=== PATIENT | female | born 1950 | race Caucasian/White ===

== ENCOUNTER 2019-02-02 21:05 | Inpatient (IN) | payer BC, MEDICARE ==
[2019-02-02] MEDS ORDERED: IPRATROPIUM/ALBUTEROL 0.5-2.5 MG/3 ML AMPUL NEB ONE (21:34)
[2019-02-02] MEDS: ALBUTEROL SULFATE 0.083% NEB 2.5 MG/3 ML AMPUL NEB SCH (21:48)
[2019-02-02 21:51] LABS: ABSOLUTE MONOCYTES (AUTO) 0.4 10^3/uL (0.1-1.4); ABSOLUTE NEUT (AUTO) 12.9 10^3/uL (1.7-8.2); BASOPHILS % (AUTO) 0.2 % (0-2); EOSINOPHILS % (AUTO) 0.2 % (0-6); HEMATOCRIT 42.9 % (36.0-47.0); HEMOGLOBIN 14.5 g/dL (12.0-15.5); LYMPHOCYTES % (AUTO) 6.9 % (13-45); MEAN CORPUSCULAR HEMOGLOBIN 32.6 pg (27.0-33.4); MEAN CORPUSCULAR HGB CONC 33.8 g/dL (32.0-36.0); MEAN CORPUSCULAR VOLUME 97 fl (80-97); MONOCYTES % (AUTO) 2.7 % (3-13); PLATELET COUNT 283 10^3/uL (150-450); RED BLOOD COUNT 4.44 10^6/uL (3.72-5.28); TOTAL CELLS COUNTED % (AUTO) 100 %; WHITE BLOOD COUNT 14.3 10^3/uL (4.0-10.5)
[2019-02-02 22:08] LABS: ALANINE AMINOTRANSFERASE 22 U/L (9-52); ALBUMIN 4.1 g/dL (3.5-5.0); ALKALINE PHOSPHATASE 107 U/L (38-126); ANION GAP 8 (5-19); ASPARTATE AMINO TRANSFERASE 18 U/L (14-36); BILIRUBIN,DIRECT 0.3 mg/dL (0.0-0.4); BILIRUBIN,TOTAL 0.6 mg/dL (0.2-1.3); BLOOD UREA NITROGEN 22 mg/dL (7-20); CALCIUM 9.6 mg/dL (8.4-10.2); CARBON DIOXIDE 33 mmol/L (22-30); CHLORIDE 99 mmol/L (98-107); GLUCOSE 188 mg/dL (75-110); POTASSIUM 3.9 mmol/L (3.6-5.0); SODIUM 139.6 mmol/L (137-145); TOTAL PROTEIN 7.1 g/dL (6.3-8.2)
--- NOTE | 2019-02-02 22:18 | RADIOLOGY REPORT (SQ) ---
EXAM DESCRIPTION: XR CHEST 1 VIEW COMPLETED DATE/TME: 02/02/2019 21:34 CLINICAL HISTORY: 68 years, Female, DIFFICULTY BREATHING COMPARISON: None. NUMBER OF VIEWS: 1 TECHNIQUE: Portable chest LIMITATIONS: None. FINDINGS: Heart size normal. Mild atheromatous change thoracic aorta. Lungs are clear. No pneumothorax IMPRESSION: No acute cardiopulmonary process copyright 2010 [employer]- All Rights Reserved
[2019-02-02] MEDS ORDERED: ALBUTEROL SULFATE 0.083% NEB 2.5 MG/3 ML AMPUL NEB ONE (22:32)
--- NOTE | 2019-02-02 22:39 | ER Document Report ---
ED General - General Chief Complaint: Shortness Of Breath Stated Complaint: DIFFICULTY BREATHING Time Seen by Provider: 02/02/19 22:32 Notes: Patient is a 68-year-old female who presents with complaints of difficulty breathing is been worsening over the course of a week. She is a smoker. She says that since she is been sick and having difficulty breathing she did stop smoking this week. She did go to her medical clinic today and she was hypoxic and therefore she was sent here. She received a injection of steroids at the clinic in several breathing treatments. She then got here and start her breathing treatments as well. She denies any fevers. No vomiting. No chest pain. No other complaints at this time. TRAVEL OUTSIDE OF THE [place] IN LAST 30 DAYS: No - Related Data Allergies/Adverse Reactions: No Known Allergies Allergy (Unverified 02/02/19 21:49) Past Medical History - Social History Smoking Status: Former Smoker Frequency of alcohol use: None Drug Abuse: None Family History: Reviewed & Not Pertinent Patient has suicidal ideation: No Patient has homicidal ideation: No - Past Medical History Cardiac Medical History: Reports: Hx Hypertension Renal/ Medical History: Denies: Hx Peritoneal Dialysis Review of Systems - Review of Systems Notes: My Normal Review Basic REVIEW OF SYSTEMS: CONSTITUTIONAL : Denies fever, chills, or sweats. Denies recent illness. EENT: Denies eye, ear, throat, or mouth pain or symptoms. Denies nasal or sinus congestion. CARDIOVASCULAR: Denies chest pain. RESPIRATORY: Wheezing and difficulty breathing GASTROINTESTINAL: Denies abdominal pain. Denies nausea, vomiting SKIN: Denies rash or skin lesions. NEUROLOGICAL: Denies altered mental status or loss of consciousness. Denies h eadache. Denies weakness or paralysis or loss of use of either side. Denies problems with gait or speech. Denies sensory or motor loss. ALL OTHER SYSTEMS REVIEWED AND NEGATIVE. Physical Exam - Vital signs Vitals: Temp Pulse Resp BP Pulse Ox 98.1 F 103 H 20 143/63 H 87 L 02/02/19 21:12 02/02/19 21:12 02/02/19 21:12 02/02/19 21:12 02/02/19 21:12 - Notes Notes: General Appearance: Well nourished, alert, cooperative, mild acute distress, no obvious discomfort. Vitals: reviewed, See vital signs table. Eyes: PERRL, EOMI, Conjuctiva clear Mouth: No decreasd moisture Throat: No tonsillar inflammation, No airway obstruction, No lymphadenopathy Neck: Supple, no neck tenderness, No thyromegaly Lungs: Diffuse wheezing, No rales, No rhonci, No accessory muscle use, Fair air exchange bilaterally. Heart: Normal rate, Regular rythm, No murmur, no rub Abdomen: Normal BS, soft, No rigidity, No abdominal tenderness, No guarding, no rebound, no abdominal masses, no organomegaly Extremities: good pulses in all extremities, no swelling or tenderness in the extremities, no edema. Skin: warm, dry, appropriate color, no rash Neuro: speech clear, oriented x 3, normal affect, responds appropriately to questions. Course - Re-evaluation Re-evalutation: 02/02/19 23:52 On reevaluation patient's wheezing is resolved. She is still on oxygen. I will slowly downtrend her supplemental oxygen to see if we can get her off oxygen and potentially get her discharged home. Currently she is 93% on 2 L. I have just turned her down the 1 L of oxygen. We will leave her there and then reassess her shortly. 02/03/19 00:54 Unfortunately patient's oxygen saturation dropped to 88 and 89% when I titrated her down to 1 L of oxygen. This is with her at rest. Therefore did not feel that she can go home as I am unable to even titrate her off oxygen to even test her to ambulate her as her oxygen saturation only drops. Patient is agreeable to staying. I will speak with the hospitalist about potential admission. 02/03/19 01:22 I did speak with Dr. Beebe, hospitalist, evaluate the patient for admission. - Vital Signs Vital signs: Temp Pulse Resp BP Pulse Ox 98.1 F 103 H 19 110/58 L 92 02/02/19 21:12 02/02/19 21:12 02/03/19 00:01 02/03/19 00:01 02/03/19 00:01 - Laboratory Result Diagrams: 02/02/19 21:35 02/02/19 21:35 Laboratory results interpreted by me: 02/02/19 02/02/19 02/02/19 21:35 21:35 23:00 WBC 14.3 H Seg Neutrophils % 90.0 H Lymphocytes % 6.9 L Monocytes % 2.7 L Absolute Neutrophils 12.9 H Carbon Dioxide 33 H BUN 22 H Glucose 188 H Urine Ascorbic Acid 20 H - EKG Interpretation by Me Additional EKG results interpreted by me: 02/02/19 22:33 EKG is reviewed and interpreted by me. EKG shows sinus tachycardia with rate of [address] segment elevation or depression. No ischemic T wave inversions. KS interval, QRS duration, QT intervals are within normal range. No old EKG available for comparison. Discharge - Discharge Clinical Impression: Bronchitis, Hypoxemia Condition: Stable Disposition: ADMITTED OBSERVATION Admitting Provider: Abiel (Hospitalist) Unit Admitted: Telemetry
[2019-02-02] MEDS: MAGNESIUM SULFATE/D5W 1 GM/100 ML RTUPB IV SCH ×2 (23:04→23:26)
--- NOTE | 2019-02-02 23:13 | EKG REPORT ---
SEVERITY:- ABNORMAL ECG - SINUS TACHYCARDIA LEFT ATRIAL ABNORMALITY BORDERLINE LEFT AXIS DEVIATION NONSPECIFIC T ABNORMALITIES, LATERAL LEADS : Confirmed by: Pat Andrews 02-Feb-2019 23:11:17
[2019-02-03 00:07] LABS: APPEARANCE,URINE TURBID; BILIRUBIN,URINE NEGATIVE (NEGATIVE); COLOR,URINE AMBER; GLUCOSE, URINE NEGATIVE (NEGATIVE); KETONES,URINE NEGATIVE (NEGATIVE); LEUKOCYTE ESTERASE,URINE NEGATIVE (NEGATIVE); NITRITE,URINE NEGATIVE (NEGATIVE); PROTEIN,URINE NEGATIVE (NEGATIVE); URINE SPECIFIC GRAVITY 1.018; UROBILINOGEN,URINE NEGATIVE mg/dL (<2.0)
[2019-02-03] MEDS: ALBUTEROL SULFATE 0.083% NEB 2.5 MG/3 ML AMPUL NEB SCH (00:50)
[2019-02-03] MEDS ORDERED: ALBUTEROL SULFATE 0.083% NEB 2.5 MG/3 ML AMPUL NEB ONE (00:54)
[2019-02-03] MEDS ORDERED: MAGNESIUM HYDROXIDE SUSP 30 ML UDCUP PO PRN (02:38)
[2019-02-03] MEDS ORDERED: ZOLPIDEM TARTRATE 5 MG TABLET PO PRN (02:38)
[2019-02-03] MEDS ORDERED: ONDANSETRON HCL INJ/PF 4 MG/2 ML SDV IV PRN (02:38)
[2019-02-03] MEDS ORDERED: MAG HYDROX/AL HYDROX/SIMETH SUSP 30 ML UDCUP PO PRN (02:38)
[2019-02-03] MEDS ORDERED: LEVALBUTEROL HCL NEB 1.25 MG/3 ML AMPUL NEB PRN (02:38)
[2019-02-03] MEDS ORDERED: NALBUPHINE HCL INJ 10 MG/1 ML AMPULE IV PRN (02:41)
[2019-02-03] MEDS ORDERED: NICOTINE 21 MG/24 HR PATCH.TD24 TD PRN (02:41)
[2019-02-03] MEDS ORDERED: ACETAMINOPHEN 325 MG TABLET PO PRN (02:41)
[2019-02-03 04:06] LABS: FREE T3 3.71 pg/mL (2.77-5.27)
[2019-02-03 04:07] LABS: FREE T4 (FREE THYROXINE) 1.17 ng/dL (0.78-2.19)
[2019-02-03] MEDS: HEPARIN SOD (PORCINE) 5,000 UNIT/ML 1 ML SYRINGE SUBCUT SCH ×3 (05:13→21:50)
[2019-02-03] MEDS ORDERED: METHYLPREDNISOLONE INJ 40 MG/1 ML SDV IV SCH (06:00)
--- NOTE | 2019-02-03 06:52 | PDOC H&P ---
History of Present Illness Admission Date/PCP: 02/03/19 01:32 Patient complains of: Dyspnea History of Present Illness: CYN HEAD is a 68 year old female who presented to the emergency room with a 2-week history of dyspnea. She admits that she has been having dyspnea for 2 weeks and did finally stop smoking approximately 1 week ago trying to help with her dyspnea and it seemed that she continued to worsen and become so severe that she felt the need for medical attention and went to a clinic where she was found to be significantly hypoxic and subsequently sent to the emergency room. She denies prior similar episodes and has not identified any aggravating or ameliorating factors for her dyspnea. In the ER she was found to be significantly hypoxic and was started on an aggressive pulmonary toilet intravenous steroids and nebulizer therapy. She improved slightly but continued to require oxygen via nasal cannula in order to maintain her O2 sat. Patient was subsequently admitted to the hospital for further evaluation and treatment. Past Medical History Cardiac Medical History: Reports: Hypertension Denies: Coronary Artery Disease Pulmonary Medical History: Reports: Bronchitis Denies: Asthma, Chronic Obstructive Pulmonary Disease (COPD), Pneumonia, Respiratory Failure EENT Medical History: Denies: Cataracts Neurological Medical History: Denies: Hemorrhagic CVA, Ischemic CVA, Seizures Endocrine Medical History: Denies: Diabetes Mellitus Type 1, Diabetes Mellitus Type 2, Hyperthyroidism, Hypothyroidism Renal/ Medical History: Denies: Chronic Kidney Disease, Nephrolithiasis Malignancy Medical History: Reports: None GI Medical History: Denies: Cirrhosis, Hepatitis Musculoskeltal Medical History: Denies: Arthritis, Fibromyalgia Skin Medical History: Denies: Eczema, Psoriasis Psychiatric Medical History: Reports: Tobacco Dependency Denies: Alcohol Dependency, Substance Abuse Traumatic Medical History: Reports: None Hematology: Denies: Anemia, Bleeding Tendencies Infectious Medical History: Reports: None Past Surgical History Past Surgical History: Reports: None Social History Information Source: Patient Lives with: Spouse/Significant other Smoking Status: Current Every Day Smoker Frequency of Alcohol Use: Rare Hx Recreational Drug Use: No Drugs: None Hx Prescription Drug Abuse: No - Advance Directive Resuscitation Status: Full Code Surrogate healthcare decision maker:: Spouse Family History Family History: CAD, COPD, DM, Hypertension, Malignancy Parental Family History Reviewed: Yes Children Family History Reviewed: No Sibling(s) Family History Reviewed.: Yes Medication/Allergy Allergies/Adverse Reactions: No Known Allergies Allergy (Unverified 02/02/19 21:49) Review of Systems Constitutional: ABSENT: chills, fever(s) Eyes: ABSENT: visual disturbances, other - Eye pain Ears: ABSENT: hearing changes, other - Ear pain Nose, Mouth, and Throat: ABSENT: mouth pain, sore throat Cardiovascular: PRESENT: dyspnea on exertion. ABSENT: chest pain, palpitations Respiratory: PRESENT: as per HPI, cough, dyspnea. ABSENT: hemoptysis, sputum Gastrointestinal: ABSENT: abdominal pain, constipation, diarrhea, nausea, vomiting Genitourinary: ABSENT: dysuria, hematuria Musculoskeletal: ABSENT: back pain, joint swelling, muscle weakness Integumentary: ABSENT: pruritus, rash Neurological: ABSENT: confusion, convulsions, focal weakness, memory loss, syncope Psychiatric: ABSENT: anxiety, depression Endocrine: ABSENT: cold intolerance, heat intolerance Hematologic/Lymphatic: ABSENT: easy bleeding, easy bruising Physical Exam Vital Signs: Temp Pulse Resp BP Pulse Ox 98.1 F 103 H 16 133/60 H 92 02/02/19 21:12 02/02/19 21:12 02/03/19 01:01 02/03/19 01:01 02/03/19 01:23 Intake & Output 02/01/19 02/02/19 02/03/19 23:59 23:59 23:59 Intake Total 37 100 Balance 37 100 Weight 87.3 kg General appearance: PRESENT: no acute distress, cooperative, other - on O2/NC Head exam: PRESENT: atraumatic, normocephalic Eye exam: ABSENT: conjunctival injection, scleral icterus Ear exam: PRESENT: normal external ear exam. ABSENT: drainage Mouth exam: PRESENT: dry mucosa, neck supple Neck exam: ABSENT: thyromegaly, tracheal deviation Respiratory exam: PRESENT: decreased breath sounds - mild throughout chest, prolonged expiratory phas - moderate, symmetrical, wheezes - expiratory. ABSENT: accessory muscle use, retraction, tachypnea Cardiovascular exam: PRESENT: RRR. ABSENT: clicks, gallop, rubs Pulses: PRESENT: normal radial pulses, normal dorsalis pedis pul Vascular exam: PRESENT: normal capillary refill. ABSENT: pallor GI/Abdominal exam: PRESENT: normal bowel sounds, soft Rectal exam: PRESENT: deferred Extremities exam: ABSENT: joint swelling, pedal edema Musculoskeletal exam: PRESENT: full ROM, normal inspection Neurological exam: PRESENT: alert, oriented to person, oriented to place, oriented to time, oriented to situation, CN II-XII grossly intact. ABSENT: motor sensory deficit Psychiatric exam: PRESENT: appropriate affect, normal mood Skin exam: PRESENT: dry, intact, warm. ABSENT: jaundice, rash, urticaria Results Laboratory Results: 02/02/19 21:35 02/02/19 21:35 02/02/19 02/02/19 02/02/19 21:35 21:35 23:00 WBC 14.3 H RBC 4.44 Hgb 14.5 Hct 42.9 MCV 97 MCH 32.6 MCHC 33.8 RDW 14.0 Plt Count 283 Seg Neutrophils % 90.0 H Lymphocytes % 6.9 L Monocytes % 2.7 L Eosinophils % 0.2 Basophils % 0.2 Absolute Neutrophils 12.9 H Absolute Lymphocytes 1.0 Absolute Monocytes 0.4 Absolute Eosinophils 0.0 Absolute Basophils 0.0 Sodium 139.6 Potassium 3.9 Chloride 99 Carbon Dioxide 33 H Anion Gap 8 BUN 22 H Creatinine 0.83 Est GFR ( Amer) > 60 Est GFR (Non-Af Amer) > 60 Glucose 188 H Calcium 9.6 Total Bilirubin 0.6 AST 18 ALT 22 Alkaline Phosphatase 107 Total Protein 7.1 Albumin 4.1 Urine Color SANTOS Urine Appearance TURBID Urine pH 5.0 Ur Specific [place] 1.018 Urine Protein NEGATIVE Urine Glucose (UA) NEGATIVE Urine Ketones NEGATIVE Urine Blood NEGATIVE Urine Nitrite NEGATIVE Ur Leukocyte Esterase NEGATIVE Urine WBC (Auto) 2 Urine RBC (Auto) 2 Impressions: Chest X-Ray 02/02/19 21:34 IMPRESSION: No acute cardiopulmonary process copyright 2011 [employer]- All Rights Reserved Assessment and Plan - Diagnosis (1) Acute respiratory failure with hypoxia Is this a current diagnosis for this admission?: Yes Plan: Patient be treated with supplemental oxygen for as long as required in order to maintain adequate levels of oxygenation. She will also be treated with aggressive pulmonary toilet and intravenous steroids. She will have continuous pulse oximetry monitoring for her assessment. (2) COPD with acute exacerbation Is this a current diagnosis for this admission?: Yes Plan: Patient be treated with aggressive pulmonary toilet utilizing nebulized Xopenex, Pulmicort and Atrovent. She will also receive IV Solu-Medrol and supplemental oxygen as required. Should she develop any pain she may use Nubain 10 mg IV every 3 hours as needed for pain. (3) Tobacco use disorder, severe, dependence Is this a current diagnosis for this admission?: Yes Plan: Smoking cessation is advised and counseled briefly. Nicotine replacement patches available for the patient's years. (4) HTN (hypertension) Qualifiers: Hypertension type: essential hypertension Qualified Code(s): I10 - Essential (primary) hypertension Is this a current diagnosis for this admission?: Yes Plan: Patient will be continued on her current antihypertensive medications as soon as her medication list has been verified. - Time Time Spent with patient: 25-34 minutes Smoking Cessation Education: 3 to 10 minutes Anticipated discharge: Home - Inpatient Certification Based on my medical assessment, after consideration of the patient's comorbidities, presenting symptoms, or acuity I expect that the services needed warrant INPATIENT care.: Yes I certify that my determination is in accordance with my understanding of Medicare's requirements for reasonable and necessary INPATIENT services [42 CFR 412.3e].: Yes Medical Necessity: Need Close Monitoring Due to Risk of Patient Decompensation, Need for Nebulizer Therapy and Monitoring of Response, Risk of Complication if N ot Cared For in Hospital
[2019-02-03] MEDS: LEVALBUTEROL HCL NEB 1.25 MG/3 ML AMPUL NEB SCH ×2 (08:22→15:59)
[2019-02-03] MEDS: BUDESONIDE NEB 0.5 MG/2 ML AMPUL NEB SCH ×2 (08:22→20:25)
[2019-02-03] MEDS: IPRATROPIUM BROMIDE 0.02% NEB 0.5 MG/2.5 ML AMPUL NEB SCH ×2 (08:23→15:59)
[2019-02-03] MEDS: FAMOTIDINE 20 MG TABLET PO SCH ×2 (09:55→21:53)
[2019-02-03] MEDS: DOCUSATE SODIUM 100 MG/10 ML UDC PO SCH ×2 (09:55→17:19)
[2019-02-03] MEDS ORDERED: (PENDING PHARMACY ID) (Losartan/Hydrochlorothiazide [Hyzaar 100-25 Tablet] 1 TAB) PO SCH (11:15)
[2019-02-03] MEDS: FLUTICASONE/VILANTEROL 100-25 MCG/DOSE IH SCH (11:56)
[2019-02-03] MEDS: ASPIRIN 81 MG TABLET, ENT COATED PO SCH (12:00)
[2019-02-03] MEDS: AMLODIPINE BESYLATE 5 MG TABLET PO SCH (12:00)
[2019-02-03] MEDS: HYDROCHLOROTHIAZIDE 25 MG TABLET PO SCH (12:01)
[2019-02-03] MEDS: LOSARTAN POTASSIUM 50 MG TABLET PO SCH (12:01)
[2019-02-03] MEDS: LORATADINE 10 MG TABLET PO SCH (12:01)
[2019-02-03] MEDS: FLUTICASONE NASAL SPRAY 50 MCG/SPRY 120 SPRAY/16 GM NASL SCH (12:02)
[2019-02-03] MEDS ORDERED: MONTELUKAST SODIUM 10 MG TABLET PO SCH (22:00)
[2019-02-03] MEDS ORDERED: SIMVASTATIN 40 MG TABLET PO SCH (22:00)
[2019-02-04] MEDS: IPRATROPIUM BROMIDE 0.02% NEB 0.5 MG/2.5 ML AMPUL NEB SCH ×2 (00:40→08:26)
[2019-02-04] MEDS: LEVALBUTEROL HCL NEB 1.25 MG/3 ML AMPUL NEB SCH ×2 (00:40→08:26)
[2019-02-04] MEDS: HEPARIN SOD (PORCINE) 5,000 UNIT/ML 1 ML SYRINGE SUBCUT SCH (05:08)
[2019-02-04] MEDS: BUDESONIDE NEB 0.5 MG/2 ML AMPUL NEB SCH (08:26)
[2019-02-04 08:47] LABS: ABSOLUTE BASOPHILS # (AUTO) 0.1 10^3/uL (0.0-0.2); ABSOLUTE EOSINOPHILS # (AUTO) 0.1 10^3/uL (0.0-0.6); ABSOLUTE LYMPHOCYTES (AUTO) 3.2 10^3/uL (0.5-4.7); ABSOLUTE NEUT (AUTO) 13.9 10^3/uL (1.7-8.2); BASOPHILS % (AUTO) 0.7 % (0-2); EOSINOPHILS % (AUTO) 0.3 % (0-6); HEMATOCRIT 41.2 % (36.0-47.0); HEMOGLOBIN 13.7 g/dL (12.0-15.5); LYMPHOCYTES % (AUTO) 17.6 % (13-45); MEAN CORPUSCULAR HEMOGLOBIN 32.3 pg (27.0-33.4); MEAN CORPUSCULAR HGB CONC 33.3 g/dL (32.0-36.0); MEAN CORPUSCULAR VOLUME 97 fl (80-97); MONOCYTES % (AUTO) 5.6 % (3-13); PLATELET COUNT 251 10^3/uL (150-450); RED BLOOD COUNT 4.25 10^6/uL (3.72-5.28); RED CELL DISTRIBUTION WIDTH 14.2 % (11.5-14.0); SEGMENTED NEUTROPHILS % (AUTO) 75.8 % (42-78); TOTAL CELLS COUNTED % (AUTO) 100 %; WHITE BLOOD COUNT 18.3 10^3/uL (4.0-10.5)
[2019-02-04 08:51] LABS: VENOUS BLOOD BASE EXCESS 7.2 mmol/L; VENOUS BLOOD HCO3 33.6 mmol/L (20-32); VENOUS BLOOD PCO2 54.3 mmHg (35-63); VENOUS BLOOD PH 7.41 (7.30-7.42)
[2019-02-04 09:11] LABS: ANION GAP 9 (5-19); BLOOD UREA NITROGEN 23 mg/dL (7-20); CARBON DIOXIDE 33 mmol/L (22-30); CHLORIDE 98 mmol/L (98-107); GLUCOSE 123 mg/dL (75-110); POTASSIUM 3.6 mmol/L (3.6-5.0); SODIUM 140.4 mmol/L (137-145); TRIGLYCERIDES 111 mg/dL (<150)
[2019-02-04] MEDS: DOCUSATE SODIUM 100 MG/10 ML UDC PO SCH (09:22)
[2019-02-04] MEDS: FAMOTIDINE 20 MG TABLET PO SCH (09:22)
[2019-02-04] MEDS: FLUTICASONE NASAL SPRAY 50 MCG/SPRY 120 SPRAY/16 GM NASL SCH (09:30)
[2019-02-04] MEDS: LOSARTAN POTASSIUM 50 MG TABLET PO SCH (09:30)
[2019-02-04] MEDS: FLUTICASONE/VILANTEROL 100-25 MCG/DOSE IH SCH (09:30)
[2019-02-04] MEDS: LORATADINE 10 MG TABLET PO SCH (09:31)
[2019-02-04] MEDS: HYDROCHLOROTHIAZIDE 25 MG TABLET PO SCH (09:31)
[2019-02-04] MEDS: AMLODIPINE BESYLATE 5 MG TABLET PO SCH (09:31)
[2019-02-04 09:32] LABS: DIRECT LDL 69 mg/dL (<100)
[2019-02-04] MEDS: ASPIRIN 81 MG TABLET, ENT COATED PO SCH (09:32)
[2019-02-04] MEDS ORDERED: PREDNISONE 20 MG TABLET PO SCH (10:00)
[2019-02-04 12:01] VITALS: BP 117/52
--- NOTE | 2019-02-04 15:45 | PDOC PROGRESS REPORT ---
Subjective Progress Note for:: 02/03/19 Subjective:: The patient is still on oxygen. She is less short of breath today. Reason For Visit: ACUTE EXACERBATION OF COPD Physical Exam Vital Signs: Temp Pulse Resp BP Pulse Ox 97.4 F 89 18 117/52 L 88 L 02/03/19 04:42 02/03/19 08:23 02/03/19 08:23 02/03/19 04:42 02/03/19 08:23 Intake & Output 02/02/19 02/03/19 02/04/19 06:59 06:59 06:59 Intake Total 137 Balance 137 Weight 87.3 kg General appearance: PRESENT: no acute distress, cooperative, well-developed Head exam: PRESENT: atraumatic, normocephalic Mouth exam: PRESENT: moist, tongue midline Respiratory exam: PRESENT: clear to auscultation alexandrea, symmetrical, unlabored. ABSENT: accessory muscle use, rales, rhonchi, wheezes Cardiovascular exam: PRESENT: RRR, +S1, +S2 GI/Abdominal exam: PRESENT: normal bowel sounds, soft. ABSENT: distended, tenderness Musculoskeletal exam: PRESENT: ambulatory Neurological exam: PRESENT: alert, awake, oriented to person, oriented to place, oriented to time, oriented to situation, CN II-XII grossly intact Psychiatric exam: PRESENT: appropriate affect, normal mood. ABSENT: agitated, anxious Focused psych exam: ABSENT: delusional, restlessness Results Laboratory Results: 02/02/19 21:35 02/02/19 21:35 02/02/19 02/02/19 02/02/19 21:35 21:35 21:35 WBC 14.3 H RBC 4.44 Hgb 14.5 Hct 42.9 MCV 97 MCH 32.6 MCHC 33.8 RDW 14.0 Plt Count 283 Seg Neutrophils % 90.0 H Lymphocytes % 6.9 L Monocytes % 2.7 L Eosinophils % 0.2 Basophils % 0.2 Absolute Neutrophils 12.9 H Absolute Lymphocytes 1.0 Absolute Monocytes 0.4 Absolute Eosinophils 0.0 Absolute Basophils 0.0 Sodium 139.6 Potassium 3.9 Chloride 99 Carbon Dioxide 33 H Anion Gap 8 BUN 22 H Creatinine 0.83 Est GFR ( Amer) > 60 Est GFR (Non-Af Amer) > 60 Glucose 188 H Calcium 9.6 Total Bilirubin 0.6 AST 18 ALT 22 Alkaline Phosphatase 107 Total Protein 7.1 Albumin 4.1 Free T4 1.17 Free T3 pg/mL 3.71 Urine Color Urine Appearance Urine pH Ur Specific [place] Urine Protein Urine Glucose (UA) Urine Ketones Urine Blood Urine Nitrite Ur Leukocyte Esterase Urine WBC (Auto) Urine RBC (Auto) 02/02/19 23:00 WBC RBC Hgb Hct MCV MCH MCHC RDW Plt Count Seg Neutrophils % Lymphocytes % Monocytes % Eosinophils % Basophils % Absolute Neutrophils Absolute Lymphocytes Absolute Monocytes Absolute Eosinophils Absolute Basophils Sodium Potassium Chloride Carbon Dioxide Anion Gap BUN Creatinine Est GFR ( Amer) Est GFR (Non-Af Amer) Glucose Calcium Total Bilirubin AST ALT Alkaline Phosphatase Total Protein Albumin Free T4 Free T3 pg/mL Urine Color SANTOS Urine Appearance TURBID Urine pH 5.0 Ur Specific [place] 1.018 Urine Protein NEGATIVE Urine Glucose (UA) NEGATIVE Urine Ketones NEGATIVE Urine Blood NEGATIVE Urine Nitrite NEGATIVE Ur Leukocyte Esterase NEGATIVE Urine WBC (Auto) 2 Urine RBC (Auto) 2 Impressions: Chest X-Ray 02/02/19 21:34 IMPRESSION: No acute cardiopulmonary process copyright 2011 [employer]- All Rights Reserved Assessment and Plan - Diagnosis (1) Acute respiratory failure with hypoxia Is this a current diagnosis for this admission?: Yes Plan: Patient is feeling slightly better this afternoon. She has not been on inhaler therapy in the past. Supplemental oxygen is required. Intravenous steroids and nebulizer treatments have been instituted. (2) COPD with acute exacerbation Is this a current diagnosis for this admission?: Yes Plan: As noted above oxygen, nebulizer treatments and intravenous steroids are implemented. The patient feels slightly better today. (3) HTN (hypertension) Qualifiers: Hypertension type: essential hypertension Qualified Code(s): I10 - Essential (primary) hypertension Is this a current diagnosis for this admission?: Yes Plan: We will monitor blood pressures on current medication regimen. With steroids the patient may experience transient hypertension. Will adjust medications if needed. (4) Tobacco use disorder, severe, dependence Is this a current diagnosis for this admission?: Yes Plan: Encourage tobacco cessation. She stopped smoking 1 week prior to admission because she was feeling so poorly. Suggested nicotine patch. - Time Time Spent with patient: 15-24 minutes Smoking Cessation Education: 3 to 10 minutes Medications reviewed and adjusted accordingly: Yes Anticipated discharge: Home
--- NOTE | 2019-02-04 15:49 | PDOC DISCHARGE SUMMARY ---
General - Admit/Disc Date/PCP Admission Date/Primary Care Provider: 02/03/19 01:32 Discharge Date: 02/04/19 - Discharge Diagnosis (1) Acute respiratory failure with hypoxia Is this a current diagnosis for this admission?: Yes Summary: The patient has successfully been weaned back to room air. (2) COPD with acute exacerbation Is this a current diagnosis for this admission?: Yes Summary: Combination of DuoNeb's, budesonide and systemic steroids have made a significant improvement. After discussion I encouraged patient to follow-up with a merchandising director to be sure of a definitive diagnosis so that we not prateek ting the wrong illness. I suggested that she continue with a dual medication inhaler as an outpatient until she follows up. She will also continue her steroid taper. (3) HTN (hypertension) Is this a current diagnosis for this admission?: Yes Summary: Continue current medications (4) Tobacco use disorder, severe, dependence Is this a current diagnosis for this admission?: Yes Summary: Continue tobacco cessation - Additional Information Resuscitation Status: Full Code Prescriptions: Albuterol Sulfate [Albuterol Sulfate Hfa] 2 puff IH Q4HP PRN #1 [email or web address] PRN Reason: Shortness Of Breath Fluticasone/Salmeterol [Advair 100-50 Diskus 14 Dose/Diskus] 1 inh IH BID 30 Days #1 each Montelukast Sodium [Singulair 10 mg Tablet] 10 mg PO QHS 30 Days #30 tablet Prednisone [Deltasone 10 mg Tablet] 10 mg PO ASDIR 12 Days #30 tablet Home Medications: Amlodipine Besylate [Norvasc 5 mg Tablet] 5 mg PO DAILY 02/03/19 Aspirin [Ecotrin 81 mg EC Tablet] 81 mg PO DAILY 02/03/19 Fluticasone Propionate [Flonase Nasal [place] 50 Mcg/[place] 16 gm] 1 spray NASL DAILY 02/03/19 Loratadine [Claritin 10 mg Tablet] 10 mg PO DAILY 02/03/19 Losartan/Hydrochlorothiazide [Hyzaar 100-25 Tablet] 1 tab PO DAILY 02/03/19 Multivit-Min/Iron/Folic/Lutein [Centrum Silver Women Tablet] 1 tab PO DAILY 02/03/19 Simvastatin [Zocor 40 mg Tablet] 40 mg PO QHS 02/03/19 Albuterol Sulfate [Albuterol Sulfate Hfa] 2 puff IH Q4HP PRN #1 [email or web address] 02/04/19 Fluticasone/Salmeterol [Advair 100-50 Diskus 14 Dose/Diskus] 1 inh IH BID 30 Days #1 each 02/04/19 Montelukast Sodium [Singulair 10 mg Tablet] 10 mg PO QHS 30 Days #30 tablet 02/04/19 Nicotine [Nicoderm 21 mg/24 Hr Transderm Patch] 1 each TD DAILYP PRN patch.[id number] 02/04/19 Prednisone [Deltasone 10 mg Tablet] 10 mg PO ASDIR 12 Days #30 tablet 02/04/19 History of Present Illness Patient complains of: Shortness of breath History of Present Illness: CYN HEAD is a 68 year old female who smokes. She has a history of hypertension. She has been having increasing shortness of breath for 2 weeks. She stopped smoking 1 week ago but this did not seem to help. She continued to feel worse and presented to the emergency department. She was found to be hypox ic requiring oxygen supplemental therapy. She appeared to respond to nebulizer treatments. She was referred to the hospital service for admission. Hospital Course Hospital Course: Unremarkable hospital course. See above. Physical Exam Vital Signs: Temp Pulse Resp BP Pulse Ox 98.0 F 88 17 113/67 91 L 02/04/19 07:21 02/04/19 08:26 02/04/19 08:26 02/04/19 07:21 02/04/19 08:26 Intake & Output 02/03/19 02/04/19 02/05/19 06:59 06:59 06:59 Intake Total 137 560 Balance 137 560 Weight 87.3 kg 88.7 kg General appearance: PRESENT: no acute distress, cooperative, well-developed Head exam: PRESENT: atraumatic, normocephalic Mouth exam: PRESENT: moist, tongue midline Respiratory exam: PRESENT: clear to auscultation alexandrea, symmetrical, unlabored. ABSENT: rales, rhonchi, tachypnea, wheezes Cardiovascular exam: PRESENT: RRR, +S1, +S2, systolic murmur - 2/6 GI/Abdominal exam: PRESENT: normal bowel sounds, soft. ABSENT: distended, tenderness Rectal exam: PRESENT: deferred Gentrourinary exam: ABSENT: indwelling catheter Extremities exam: ABSENT: pedal edema Musculoskeletal exam: PRESENT: normal inspection Neurological exam: PRESENT: alert, awake, oriented to person, oriented to place, oriented to time, oriented to situation, CN II-XII grossly intact. ABSENT: motor sensory deficit Psychiatric exam: PRESENT: appropriate affect, normal mood. ABSENT: agitated, anxious Focused psych exam: ABSENT: delusional, restlessness Results Laboratory Results: 02/04/19 08:15 02/04/19 08:15 02/04/19 02/04/19 02/04/19 08:15 08:15 08:15 WBC 18.3 H RBC 4.25 Hgb 13.7 Hct 41.2 MCV 97 MCH 32.3 MCHC 33.3 RDW 14.2 H Plt Count 251 Seg Neutrophils % 75.8 Lymphocytes % 17.6 Monocytes % 5.6 Eosinophils % 0.3 Basophils % 0.7 Absolute Neutrophils 13.9 H Absolute Lymphocytes 3.2 Absolute Monocytes 1.0 Absolute Eosinophils 0.1 Absolute Basophils 0.1 VBG pH VBG pCO2 VBG HCO3 VBG Base Excess Sodium 140.4 Potassium 3.6 Chloride 98 Carbon Dioxide 33 H Anion Gap 9 BUN 23 H Creatinine 0.71 Est GFR ( Amer) > 60 Est GFR (Non-Af Amer) > 60 Glucose 123 H Calcium 9.0 Magnesium 2.2 Triglycerides 111 Cholesterol 134.70 LDL Cholesterol Direct 69 VLDL Cholesterol 22.0 HDL Cholesterol 63 TSH 1.43 02/04/19 08:15 WBC RBC Hgb Hct MCV MCH MCHC RDW Plt Count Seg Neutrophils % Lymphocytes % Monocytes % Eosinophils % Basophils % Absolute Neutrophils Absolute Lymphocytes Absolute Monocytes Absolute Eosinophils Absolute Basophils VBG pH 7.41 VBG pCO2 54.3 VBG HCO3 33.6 H VBG Base Excess 7.2 Sodium Potassium Chloride Carbon Dioxide Anion Gap BUN Creatinine Est GFR ( Amer) Est GFR (Non-Af Amer) Glucose Calcium Magnesium Triglycerides Cholesterol LDL Cholesterol Direct VLDL Cholesterol HDL Cholesterol TSH Impressions: Chest X-Ray 02/02/19 21:34 IMPRESSION: No acute cardiopulmonary process copyright 2011 [employer]- All Rights Reserved Qualifiers - * PATIENT BEING DISCHARGED WITH ANY OF THE FOLLOWING DIAGNOSIS: No Acute Heart Failure Is this a Heart Failure Patient?: No Plan Discharge Plan: Follow-up with primary care doctor. I suggested she see a merchandising director as well. Time Spent: Greater than 30 Minutes
== END 2019-02-04 12:21 | disposition home or self-care (01) | DRG 190 ==
LOC: ER 21:05 → EH 02-03 01:32 → OBSVTOIN 02-03 01:32 → 4S 02-03 04:31
PROVIDERS: ADMIT Emergency Medicine; ATTEND Emergency Medicine
PROC: 3E0F3GC Introduction of Other Therapeutic Substance into Respiratory Tract, Percutaneous Approach (ICD-10-PCS; principal; 2019-02-03)
DX: J44.1 Chronic obstructive pulmonary disease with (acute) exacerbation (principal); J96.01 Acute respiratory failure with hypoxia; I10 Essential (primary) hypertension; F17.200 Nicotine dependence, unspecified, uncomplicated; Z79.51 Long term (current) use of inhaled steroids; Z79.82 Long term (current) use of aspirin; Z71.6 Tobacco abuse counseling; Z83.6 Family history of other diseases of the respiratory system
CPT/HCPCS: 36415; 71045; 80048; 80053; 80061; 81001; 82803; 83036; 83735; 84439; 84443; 84481; 85025; 87040; 93005; 93010; 94640; 96365; 99285; J2920; J3475; J3490; J7512; J7620